=== PATIENT | female | born 2000 | race African-American/Black ===

== ENCOUNTER 2024-11-26 10:05 | Emergency (ER) | payer BC ==
[~2024-11-26] VITALS: Ht 157.5 cm; Wt 80.0 kg
[2024-11-26 10:08] VITALS: O2SAT 98
[2024-11-26 10:37] LABS: BASOPHILS % 0.4 % (0.0-2.0); EOSINOPHILS % 1.1 % (0.0-5.0); HEMATOCRIT. 33.8 % (36.0-48.0); HEMOGLOBIN. 10.9 g/dL (12.0-16.0); LYMPHOCYTES % 14.5 % (20.0-50.0); MEAN CORPUSCULAR HEMOGLOBIN 21.8 pg (28.0-32.0); MEAN CORPUSCULAR HGB CONC 32.2 g/dL (31.0-37.0); MEAN CORPUSCULAR VOLUME 67.7 fL (81.0-99.0); MEAN PLATELET VOLUME 8.4 fl (7.4-10.4); MONOCYTES % 7.6 % (2.0-8.0); NEUTROPHILS % 76.4 % (40.0-76.0); PLATELET 270 x1000/uL (130-400); RED BLOOD CELL COUNT 4.99 mill/uL (4.2-5.4); RED CELL DISTRIBUTION WIDTH 17.2 % (11.6-14.6); WHITE BLOOD COUNT 9.9 x1000/uL (4.5-11.0)
[2024-11-26 10:39] LABS: CLARITY URINE CLEAR (CLEAR); COLOR URINE YELLOW (YELLOW); GLUCOSE URINE NEGATIVE (NEGATIVE); KETONES URINE NEGATIVE (NEGATIVE); LEUKOCYTE ESTERASE URINE 1+ (NEGATIVE); NITRITE URINE NEGATIVE (NEGATIVE); OCCULT BLOOD URINE NEGATIVE (NEGATIVE); PROTEIN URINE NEGATIVE (NEGATIVE); SPECIFIC GRAVITY URINE 1.013 (1.005-1.030); UROBILINOGEN URINE 0.2 E.U./dL (0.2-1.0)
[2024-11-26 10:40] LABS: ADD RBC MORPHOLOGY YES; DIFFERENTIAL COMMENT 1
[2024-11-26 10:41] LABS: CHLORIDE 105 mEq/L (98-107); SODIUM 138 mEq/L (136-145)
[2024-11-26 10:42] LABS: CARBON DIOXIDE 26 mEq/L (21-32)
[2024-11-26 10:43] LABS: CALCIUM 9.1 mg/dL (8.7-10.4)
[2024-11-26 10:45] LABS: HCG SCREEN NEGATIVE
[2024-11-26 10:47] LABS: CREATININE 0.8 mg/dL (0.6-1.0)
[2024-11-26 10:48] LABS: GLUCOSE 94 mg/dL (70-105); UREA NITROGEN BLOOD 8 mg/dL (9-23)
[2024-11-26 10:49] LABS: ALANINE AMINOTRANSFERASE 10 IU/L (10-49); ALBUMIN 4.1 g/dL (3.2-4.8); ASPARTATE AMINOTRANSFERASE 13 IU/L (<34)
[2024-11-26 10:50] LABS: BILIRUBIN DIRECT 0.2 mg/dL (<=3.0); BILIRUBIN TOTAL 0.8 mg/dL (0.1-1.0); PROTEIN TOTAL 6.9 g/dL (6.0-8.3)
[2024-11-26 11:10] LABS: RBC URINE NONE SEEN /hpf (0-2); SQUAMOUS EPITHELIAL CELL URINE FEW /lpf (RARE/1+); WBC URINE 0-2 /hpf (0-2)
[2024-11-26 11:11] LABS: BACTERIA URINE NONE SEEN
[2024-11-26 11:19] LABS: PLATELET ESTIMATE NORMAL
[2024-11-26 11:20] LABS: ANISOCYTOSIS 3+; MICROCYTOSIS 3+
[2024-11-26 13:38] VITALS: BP 109/70; PULSE 75; RESP 14; TEMP 36.7; O2SAT 100
== END 2024-11-26 13:43 | disposition home or self-care (01) ==
LOC: ER 10:05
DX: N83.201 Unspecified ovarian cyst, right side (principal); R10.2 Pelvic and perineal pain
CPT/HCPCS: 36415; 76830; 76856; 80048; 80076; 81003; 81025; 84703; 85025; 99284

== ENCOUNTER 2025-01-09 00:35 | Emergency (ER) | payer BC ==
[~2025-01-09] VITALS: Ht 157.5 cm; Wt 79.1 kg
[2025-01-09 00:49] VITALS: O2SAT 99
[2025-01-09 00:52] VITALS: TEMP 36.8; O2SAT 99
[2025-01-09 03:25] VITALS: BP 104/44; PULSE 77; RESP 16
[2025-01-09] MEDS: KETOROLAC 15MG/ML VIAL IM ONE (03:25)
[2025-01-09] MEDS: LIDOCAINE 5% PATCH TOP SCH (03:25)
[2025-01-09 04:07] LABS: CLARITY URINE CLEAR (CLEAR); COLOR URINE YELLOW (YELLOW); GLUCOSE URINE NEGATIVE (NEGATIVE); KETONES URINE NEGATIVE (NEGATIVE); LEUKOCYTE ESTERASE URINE TRACE (NEGATIVE); NITRITE URINE NEGATIVE (NEGATIVE); OCCULT BLOOD URINE 3+ (NEGATIVE); PH URINE 7.5 (4.5-8.0); PROTEIN URINE TRACE (NEGATIVE); SPECIFIC GRAVITY URINE 1.014 (1.005-1.030); UROBILINOGEN URINE 0.2 E.U./dL (0.2-1.0)
[2025-01-09 04:27] LABS: SQUAMOUS EPITHELIAL CELL URINE FEW /lpf (RARE/1+); WBC URINE 0-2 /hpf (0-2)
[2025-01-09 04:30] LABS: BACTERIA URINE NONE SEEN
[2025-01-09 04:31] LABS: UCG KIT EXPIRATION DATE 11-27-26; UCG KIT LOT# 0000946166; UCG SCREEN NEGATIVE
[2025-01-09] MEDS ORDERED: NITR100C MT (05:47)
== END 2025-01-09 05:58 | disposition home or self-care (01) ==
LOC: ER 00:35
DX: M54.2 Cervicalgia (principal); N39.0 Urinary tract infection, site not specified; D64.9 Anemia, unspecified; Z88.0 Allergy status to penicillin
CPT/HCPCS: 99283; 81003; 81025; 96372; J1885